=== PATIENT | male | born 1950 | race Caucasian/White ===

== ENCOUNTER 2022-08-14 07:15 | Emergency (ER) | payer OTHER, MEDICARE, SELFPAY ==
--- NOTE | ~2022-08-14 | CT_ITS ---
EXAMINATION: CT HEAD WITHOUT CONTRAST CLINICAL INFORMATION: Head injury, on blood thinners. COMPARISON: None TECHNIQUE: Contiguous axial imaging was performed from the skull base to vertex without intravenous administration of contrast. Coronal and sagittal reformatted images were obtained. This CT examination was performed using dose optimization techniques as appropriate, variously including the following: *Automated exposure control *Adjustment of mA and/or kV according to patient size (this includes techniques or standardized protocols for targeted exams where dose is matched to indication/reason for exam; i.e. extremities or head) *Use of iterative reconstruction technique DLP: 1454 mGy-cm FINDINGS: The cortical sulci are normal. The lateral ventricles are symmetrical. The third and fourth ventricles are in their normal midline position. The basilar and prepontine cisterns are unremarkable. There is no acute intra or extracerebral abnormality. There is no mass effect or midline shift. Moderate size right frontal subgaleal hematoma with subcutaneous changes. No underlying abnormality. Sections through the bony calvarium are unremarkable. The paranasal sinuses are clear. The bony orbits and orbital contents are unremarkable. CT/CT head/brain wo IV con IMPRESSION: 1. No acute intracranial pathology. 2. Moderate right subgaleal hematoma and subcutaneous changes without acute underlying abnormality.
--- NOTE | ~2022-08-14 | CT_ITS ---
EXAMINATION: CT CERVICAL SPINE WITHOUT CONTRAST CLINICAL INFORMATION: Neck pain status post fall. COMPARISON: None TECHNIQUE: Multiple axial images of the cervical spine were obtained without the administration of intravenous contrast. Coronal and sagittal reformatted images were obtained. This CT examination was performed using dose optimization techniques as appropriate, variously including the following: *Automated exposure control *Adjustment of mA and/or kV according to patient size (this includes techniques or standardized protocols for targeted exams where dose is matched to indication/reason for exam; i.e. extremities or head) *Use of iterative reconstruction technique DLP: 1454 mGy-cm with CT head from today. FINDINGS: There is normal cervical lordosis and spinal alignment. Moderate to severe degenerative disc disease is seen at C5-6 and C6-7 with disc space narrowing, sclerosis and adjacent endplates, subcortical cystic changes and marginal osteophyte formation. Mild neural foraminal narrowing on the left at both levels. Mild to moderate multilevel bilateral facet arthropathy. The odontoid process is intact with moderate articular degenerative changes. The spinous processes are intact. Mild nuchal ligament ossification is noted. The cervical soft tissues are unremarkable. No lymphadenopathy. The thyroid gland is unremarkable. The visualized lung apices are clear. CT/CT cervical spine wo IV con IMPRESSION: 1. C5-6 and C6-7 moderate to severe degenerative disc disease. No acute abnormality.
[2022-08-14 07:21] VITALS: BP 154/86; PULSE 100; RESP 16; TEMP 36.2; O2SAT 97; BMI 32.8
--- NOTE | 2022-08-14 07:35 | ED_ITS ---
HPI - Head Injury General Chief complaint: Head Injury Stated complaint: work inj 08/14/22 head inj Time Seen by Provider: 08/14/22 07:29 Source: patient Mode of arrival: ambulatory Limitations: no limitations History of Present Illness HPI Narrative: 72 yo male with hx of afib on eliquis, HTN here with c/o falling while at work. 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 Hit head on ground no LOC. No other injuries. Got up right away. Complaint: head injury and fall Onset (ago): hour(s) (645am today ) Mechanism of Injury: fall Place: work and outdoors Loss of Consciousness: no Location of injury: temporal Severity: moderate Quality: dull and aching Radiation: none Other Injuries: none Context: other anticoagulant use Associated symptoms: denies other symptoms Related Data Allergies Allergy/AdvReac Type Severity Reaction Status Date / Time Unable to Assess Allergy Verified 08/14/22 07:30 Review of Systems Review of Systems: Constitutional : No Fever, No Chills, No Fatigue ENT/Mouth : No sore throat, No Rhinorrhea Eyes: No Eye Pain, No Swelling, No Redness Cardiovascular : No Chest Pain, No SOB, No Dyspnea on Exertion Respiratory : No Cough, No Sputum Gastrointestinal : No Nausea, No Vomiting, No Diarrhea, No abdominal Pain Genitourinary : No Dysuria, No Urinary Frequency, No Hematuria, Musculoskeletal : No joint pain, No Myalgias, No Joint Swelling Skin : No Skin Lesions, No rash, pos contusion Neuro : No Weakness, No Numbness, No Dizziness, positive Headache Psych : No Anxiety/Panic, No Depression Heme/Lymph: No Bruising, No Bleeding,No Lymphadenopathy Endocrine : No Polyuria, No Polydipsia All other systems reviewed and are negative [facility] Past Medical History Attestation statement: The following information was validated with the patient. Medical History Afib HTN (hypertension) Social History Social History Alcohol intake: current Alcohol intake frequency: holidays/special occasions only Patient Tobacco Use Status: Never used Tobacco Use of substances other than those prescribed or required for medical reasons: No Advance Directives: No Advance Directives Information Provided: No Physical Exam Vital Signs: Vital Signs: Last Vital Signs Temp 97.1 F 08/14/22 07:21 Pulse 100 08/14/22 07:21 Resp 16 08/14/22 07:21 BP 154/86 H 08/14/22 07:21 Pulse Ox 97 08/14/22 07:21 O2 Del Method 08/14/22 07:21 BMI result Body Mass Index 32.8 Appearance: Alert. Oriented X3. No acute distress. Eyes: Pupils equal, round and reactive to light. ENT: Pharynx normal. Contusion to R samaritan area small abrasion Neck: Normal inspection. Neck supple. CVS: Normal heart rate and rhythm. Pulses normal. Chest: non-tender Respiratory: No respiratory distress. Breath sounds normal. Abdomen: Soft and non-tender. Back: no signs of trauma Skin: Skin warm and dry. Normal skin color. Extremities: No lower extremity edema. Full ROM Neuro: Oriented X 3. No motor deficit. No sensory deficit. Course Course Course Narrative: negative workup stable for DC MDM - Head Injury MDM Narrative Medical decision making narrative: 72 yo male with hx of afib on eliquis, HTN, here with c/o head injury s/p fall at work. At this time will need CT head/cspine given age and trauma as well as DOAC use. Discharge Plan Discharge Clinical Impression: Closed head injury Qualifiers: Encounter type: initial encounter Qualified Code(s): S09.90XA - Unspecified injury of head, initial encounter Contusion of scalp Qualifiers: Encounter type: initial encounter Qualified Code(s): S00.03XA - Contusion of scalp, initial encounter Patient Disposition: Home, Self-Care Instructions: Head Injury (ED), Contusion in Adults (ED) Additional Instructions: return to ED for any worsening symptoms or concerns FINDINGS: The cortical sulci are normal. The lateral ventricles are symmetrical. The third and fourth ventricles are in their normal midline position. The basilar and prepontine cisterns are unremarkable. There is no acute intra or extracerebral abnormality. There is no mass effect or midline shift. Moderate size right frontal subgaleal hematoma with subcutaneous changes. No underlying abnormality. Sections through the bony calvarium are unremarkable. The paranasal sinuses are clear. The bony orbits and orbital contents are unremarkable. CT/CT head/brain wo IV con IMPRESSION: 1. No acute intracranial pathology. 2. Moderate right subgaleal hematoma and subcutaneous changes without acute underlying abnormality. FINDINGS: There is normal cervical lordosis and spinal alignment. Moderate to severe degenerative disc disease is seen at C5-6 and C6-7 with disc space narrowing, sclerosis and adjacent endplates, subcortical cystic changes and marginal osteophyte formation. Mild neural foraminal narrowing on the left at both levels. Mild to moderate multilevel bilateral facet arthropathy. The odontoid process is intact with moderate articular degenerative changes. The spinous processes are intact. Mild nuchal ligament ossification is noted. The cervical soft tissues are unremarkable. No lymphadenopathy. The thyroid gland is unremarkable. The visualized lung apices are clear. CT/CT cervical spine wo IV con IMPRESSION: 1. C5-6 and C6-7 moderate to severe degenerative disc disease. No acute abnormality. Stand Alone Forms: Work/School Release
--- OUTSIDE RECORDS SUMMARY | 2022-08-14 07:35 | XMS_ITS | Continuity of Care Document ---
:1950 Author Organization [facility] Address [address] [place] [address]- Care Team Providers Name Role Phone Seth Toney MD Primary Care Physician [facility] 04[facility]21 - 05/25/21 [facility] [address] [place] [address]- Allergies, Adverse Reactions, Alerts Substance Reaction Severity Status NKA Active Immunizations Given and Recorded Vaccine Date Status Refusal Reason SARS-CoV-2 (COVID-19) mRNA-1273 vaccine 02/26/21 Recorded SARS-CoV-2 (COVID-19) mRNA-1273 vaccine 01/29/21 Recorded influenza virus vaccine, inactivated 09/01/19 Given influenza virus vaccine, inactivated 08/20/18 Given influenza virus vaccine, inactivated1 12/17/13 Given tetanus/diphtheria/pertussis, acel(Tdap)2 02/23/19 Given tetanus/diphtheria/pertussis, acel(Tdap) 12/17/13 Given pneumococcal 23-valent vaccine 08/06/17 Given pneumococcal 13-valent vaccine 07/31/16 Given Influenza Virus Vaccine (oldterm)3 01/26/16 Given Influenza Virus Vaccine (oldterm)4 10/29/07 Given Zoster Vaccine Live5 12/17/13 Given tetanus-diphtheria toxoids (Td) 08/28/04 Given 1Admin Note: [id number] Comment: ADMINISTERED S/P LACERATION TO RT LOWER LEG Admin Note: [id number] Note: rec'd at [id number] Note: DECLINED Medications Eliquis 5 mg oral tablet 1 tablet = 5 mg, By Mouth, 2 times a day, # 180 tablet, 3 Refills, Maintenance, 04/24/20 8:45:00 EDT, Tablet, [facility], 180, cm, 04/24/20 8:29:00 EDT, Height Start Date: 04/24/20 Stop Date: 04/19/21 Status: OrderedLotrel 5 mg-20 mg oral capsule 1 capsule, By Mouth, Daily, # 90 capsule, 3 Refills, Maintenance, 04/25/21 9:14:00 EDT, Capsule, [facility], Partial fill upon patient request if the prescription is for a schedule II opioid drug., 1 capsule By Mouth Daily, 180,... Start Date: 04/25/21 Status: OrderedToprol XL 25 mg oral tablet, extended release 25 mg, 1, tablet, By Mouth, Daily, # 90 tablet, Refills 3, Tot. Refills 3, Maintenance, 04/25/21 9:15:00 EDT, Route to Pharmacy Electronically, [facility], 180, cm, 04/25/21 9:00:00 EDT, Height Start Date: 04/25/21 Status: OrderedViagra 50 mg oral tablet 1 tablet = 50 mg, By Mouth, Daily, 1 hour before sexual activity, # 30 tablet, 5 Refills, Maintenance, 04/24/20 9:10:00 EDT, Tablet, [facility], 180, cm, 04/24/20 9:08:00 EDT, Height Start Date: 04/24/20 Status: Ordered Problem List Condition Effective Dates Status Health Status Informant Atrial fibrillation(Confirmed) Active Diverticulosis(Confirmed)1 Active ED (erectile dysfunction)(Confirmed) Active H/O colonoscopy(Confirmed)2, 3, 4 Active Hypertension(Confirmed) Active Internal hemorrhoids(Confirmed)5 Active Liver function tests Active abnormal(Confirmed) OA - Osteoarthritis of knee(Confirmed) Active Obesity (BMI 30-39.9)(Confirmed) Active Open wound of lower leg(Confirmed) Active Acquired polyneuropathy(Confirmed) Active Polyp of colon(Confirmed)6 Active Left shoulder pain(Confirmed) Active Warthin's tumor(Confirmed) Active 1colo 03010ablp 2019; repeat ; repeat 56757Npigpcvmqsq 2013 positive polyp, repeat 73927ymjc 72846gsap 2016 Social History Social History Type Response Smoking Status Former smoker; Other: quit s moking age 33; entered on: 07/29/16 Sex
--- OUTSIDE RECORDS SUMMARY | 2022-08-14 07:35 | XMS_ITS | Continuity of Care Document ---
:1950 Author Organization [facility] Address [address] [place] [address]- Care Team Providers Name Role Phone Seth Toney MD Primary Care Physician [facility] Date[facility]): 02/27/22 - 03/29/22 [facility] [address] [place] [address]- Allergies, Adverse Reactions, Alerts No Known Allergies Immunizations Given and Recorded Vaccine Date Status Refusal Reason influenza virus vaccine, inactivated1 08/20/21 Given influenza virus vaccine, inactivated 09/01/19 Given influenza virus vaccine, inactivated 08/20/18 Given influenza virus vaccine, inactivated2 12/17/13 Given SARS-CoV-2 (COVID-19) mRNA-1273 vaccine 02/26/21 Recorded SARS-CoV-2 (COVID-19) mRNA-1273 vaccine 01/29/21 Recorded tetanus/diphtheria/pertussis, acel(Tdap)3 02/23/19 Given tetanus/diphtheria/pertussis, acel(Tdap) 12/17/13 Given pneumococcal 23-valent vaccine 08/06/17 Given pneumococcal 13-valent vaccine 07/31/16 Given Influenza Virus Vaccine (oldterm)4 01/26/16 Given Influenza Virus Vaccine (oldterm)5 10/29/07 Given Zoster Vaccine Live6 12/17/13 Given tetanus-diphtheria toxoids (Td) 08/28/04 Given 1Result Comment: NDC# [address] [phone] Note: [id number] Comment: ADMINISTERED S/P LACERATION TO RT LOWER LEG Admin Note: [id number] Note: rec'd at [id number] Note: DECLINED Medications Eliquis 5 mg oral tablet 1 tablet, By Mouth, 2 times a day, # 180 Unknown, 3 Refills, [facility], 70.8, cm, 02/28/22 7:13:00 EDT, Height Start Date: 03/25/22 Status: OrderedLotrel 5 mg-20 mg oral capsule 1 capsule, By Mouth, Daily, # 90 Unknown, 3 Refills, [facility], 90, TAKE 1 CAPSULE DAILY,70.8, cm, 02/28/22 7:13:00 EDT, Height Start Date: 03/25/22 Status: OrderedToprol XL 25 mg oral tablet, extended release 1, tablet, By Mouth, Daily, # 90 Unknown, Refills 3, Route to Pharmacy Electronically, [facility], 70.8, cm, 02/28/22 7:13:00 EDT, Height Start Date: 03/25/22 Status: OrderedViagra 50 mg oral tablet 1 tablet = 50 mg, By Mouth, Daily, 1 hour before sexual activity, # 30 tablet, 5 Refills, Maintenance, 04/24/20 9:10:00 EDT, Tablet, [facility] # [facility], 180, cm, 04/24/20 9:08:00 [...] shoulder pain(Confirmed) Active Warthin's tumor(Confirmed) Active 1colo 73112wtnm 2019; repeat ; repeat 90124Iucpxmeauuo 2013 positive polyp, repeat 96731jdoz 81832auuo 2016 Social History Social History Type Response Smoking Status Former smoker; Other: quit s moking age 33; entered on: 07/29/16 Sex
--- OUTSIDE RECORDS SUMMARY | 2022-08-14 07:35 | XMS_ITS | Continuity of Care Document ---
:1950 Author Organization [facility] Address [address] [place] [address]- Care Team Providers Name Role Phone Seth Toney MD Primary Care Physician [facility]s): 08/20/21 - 09/19/21 [facility] [address] [place] [address]- Attending Physician: Admtr, Ar8 Admitting Physician: Admtr, Ar8 Referring Physician: Admtr, Ar8 Allergies, Adverse Reactions, Alerts Substance Reaction Severity [...] 08/28/04 Given 1Result Comment: NDC# [address] [phone] Note: [id number] Comment: ADMINISTERED S/P LACERATION TO RT LOWER LEG Admin Note: [id number] Note: rec'd at [id number] Note: DECLINED Medications Eliquis 5 mg oral tablet 1 tablet, By Mouth, 2 times a day, # 180 Unknown, 1 Refills, 08/20/21 9:13:00 EDT, [facility], 180, cm, 08/20/21 8:52:00 EDT, Height Start Date: 08/20/21 Status: OrderedLotrel 5 mg-20 mg oral capsule 1 capsule, By Mouth, Daily, # 90 capsule, 1 Refills, Maintenance, 08/20/21 9:13:00 EDT, Capsule, [facility], Partial fill upon patient request if the prescription is for a schedule II opioid drug., 1 capsule By Mouth Daily, 180, cm, ... Start Date: 08/20/21 Status: OrderedToprol XL 25 mg oral tablet, extended release 25 mg, 1, tablet, By Mouth, Daily, # 90 tablet, Refills 1, Tot. Refills 1, Maintenance, 08/20/21 9:13:00 EDT, Route to Pharmacy Electronically, [facility], 180, cm, 08/20/21 8:52:00 EDT, Height Start Date: 08/20/21 Status: OrderedViagra 50 mg oral tablet 1 tablet = 50 mg, By Mouth, Daily, 1 hour before sexual activity, # 30 tablet, 5 Refills, Maintenance, 04/24/20 9:10:00 EDT, Tablet, [facility] # [facility], 180, cm, 04/24/20 9:08:00 [...] shoulder pain(Confirmed) Active Warthin's tumor(Confirmed) Active 1colo 30751fpzk 2019; repeat ; repeat 07745Steehxgjkwv 2013 positive polyp, repeat 53534yapz 31413poyj 2016 Vital Signs Most recent to oldest [Reference Range]: 1 Height 180.00 cm (12/15/08 2:34 PM) Blood Pressure [90-138/55-84 mm Hg] 142/86 mm Hg *H* (12/15/08 2:34 PM) Blood pressure sites Arm, left (12/15/08 2:34 PM) Social History Social History Type Response Smoking Status Former smoker; Other: quit s moking age 33; entered on: 07/29/16 Sex
--- OUTSIDE RECORDS SUMMARY | 2022-08-14 07:35 | XMS_ITS | Continuity of Care Document ---
:1950 Author Organization [facility] Address [address] [place] [address]- Care Team Providers Name Role Phone Seth Toney MD Primary Care Physician [facility]s): 05/14/22 - 06/13/22 [facility] [address] [place] [address]- Allergies, Adverse Reactions, Alerts No Known Allergies [...] 08/28/04 Given 1Result Comment: NDC# [place] [address] [phone] Note: [id number] Comment: ADMINISTERED S/P LACERATION TO RT LOWER LEG Admin Note: [id number] Note: rec'd at [id number] Note: DECLINED Medications Eliquis 5 mg oral [...] 5 Refills, Maintenance, 04/24/20 9:10:00 EDT, Tablet, [facility], 180, cm, 04/24/20 9:08:00 [...] shoulder pain(Confirmed) Active Warthin's tumor(Confirmed) Active 1colo 23657xphg 2019; repeat ; repeat 47088Lnwtzzhojzn 2013 positive polyp, repeat 20220pfuq 33140dbbz 2016 Social History Social History Type Response Smoking Status Former smoker; Other: quit s moking age 33; entered on: 07/29/16 Sex
--- OUTSIDE RECORDS SUMMARY | 2022-08-14 07:35 | XMS_ITS | Continuity of Care Document ---
:1950 Author Organization [facility] Address [address] [place] [address]- Care Team Providers Name Role Phone Seth Toney MD Primary Care Physician [facility] Date[facility]s): 02/08/22 - 03/10/22 [facility] [address] [place] [address]- Allergies, Adverse Reactions, Alerts No Known Allergies [...] 08/28/04 Given 1Result Comment: NDC# [address] [phone] Note: [id number] Comment: ADMINISTERED S/P LACERATION TO RT LOWER LEG Admin Note: [id number] Note: rec'd at [id number] Note: DECLINED Medications Eliquis 5 mg oral [...] 5 Refills, Maintenance, 04/24/20 9:10:00 EDT, Tablet, [facility] # [facility], 180, cm, 04/24/20 9:08:00 [...] shoulder pain(Confirmed) Active Warthin's tumor(Confirmed) Active 1colo 69183gqgw 2019; repeat ; repeat 93646Extyhtghjoi 2013 positive polyp, repeat 45038vvgn 09239cjuh 2016 Social History Social History Type Response Smoking Status Former smoker; Other: quit s moking age 33; entered on: 07/29/16 Sex
--- OUTSIDE RECORDS SUMMARY | 2022-08-14 07:35 | XMS_ITS | Continuity of Care Document ---
:1950 Author Organization [facility] Address [address] [place] [address]- Care Team Providers Name Role Phone Dawna HARDEN, Seth Holley Primary Care Physician [place] [facility] [place] 07/29/[address] [address]- Attending Physician: Mathew Doran Admitting Physician: Mathew Doran Referring Physician: AdmtrMathew Allergies, Adverse Reactions, Alerts Substance Reaction Severity [...] tetanus-diphtheria toxoids (Td) 08/28/04 Given 1Admin Note: [id number] Comment: ADMINISTERED S/P LACERATION TO RT LOWER LEG Admin Note: [id number] Note: rec'd at [id number] Note: DECLINED Medications Eliquis 5 mg oral tablet 1 tablet, By Mouth, 2 times a day, # 180 Unknown, 0 Refills, [facility], 180, cm, 219:00:00 EDT, Height Start Date: 07/26/21 Status: OrderedLotrel 5 mg-20 mg oral capsule [...] 5 Refills, Maintenance, 04/24/20 9:10:00 EDT, Tablet, [facility] # [facility], 180, cm, 04/24/20 9:08:00 [...] shoulder pain(Confirmed) Active Warthin's tumor(Confirmed) Active 1colo 06451vzft 2019; repeat ; repeat 10991Njgmzuudsjb 2013 positive polyp, repeat 59149himp 89539bagg 2016 Social History Social History Type Response Smoking Status Former smoker; Other: quit s moking age 33; entered on: 07/29/16 Sex
--- OUTSIDE RECORDS SUMMARY | 2022-08-14 07:36 | XMS_ITS | Continuity of Care Document ---
:1950 Author Organization [facility] Address [address] [place] [address]- Care Team Providers Name Role Phone Seth Toney MD Primary Care Physician [place] [facility] [place] 06/28/20 - 07/28/20 [facility] [address] [place] [address]- [facility] Attending Physician: Mathew Doran Admitting Physician: AdmMathew morocho Referring Physician: AdmtrMathew Allergies, Adverse Reactions, Alerts Substance Reaction Severity Status NKA Active Immunizations Given and Recorded Vaccine Date Status Refusal Reason influenza virus vaccine, inactivated 09/01/19 Given influenza virus vaccine, inactivated 08/20/18 Given influenza virus vaccine, inactivated1 12/17/13 Given tetanus/diphtheria/pertussis, acel(Tdap)2 02/23/19 Given tetanus/diphtheria/pertussis, acel(Tdap) 12/17/13 Given pneumococcal 23-valent vaccine 08/06/17 Given pneumococcal 13-valent vaccine 07/31/16 Given Influenza Virus Vaccine (oldterm)3 01/26/16 Given Influenza Virus Vaccine (oldterm)4 10/29/07 Given Zoster Vaccine Live5 12/17/13 Given tetanus-diphtheria toxoids (Td) 08/28/04 Given 1Admin Note: [id number] Comment: ADMINISTERED S/P LACERATION TO RT LOWER LEG Admin Note: [id number] Note: rec'd at [id number] Note: DECLINED Medications amlodipine-benazepril 5 mg-40 mg oral capsule 1 capsule, By Mouth, Daily, for 90 days, # 90 capsule, 3 Refills, Hard Stop 04/19/21 8:44:00 EDT, 04/24/20 8:44:00 EDT, Capsule, [facility] Pres[facility] Delivery, 1 capsule By Mouth Daily,x90 days, 180, cm, 04/24/20 8:29:00 EDT, Height Start Date: 04/24/20 Stop Date: 04/19/21 Status: OrderedEliquis 5 mg oral tablet 1 tablet = 5 mg, By Mouth, 2 times a day, # 180 tablet, 3 Refills, Maintenance, 04/24/20 8:45:00 EDT, Tablet, [facility] Prescription Delivery, 180, cm, 04/24/20 8:29:00 EDT, Height Start Date: 04/24/20 Stop Date: 04/19/21 Status: OrderedToprol XL 25 mg oral tablet, extended release 25 mg, 1, tablet, By Mouth, Daily, # 90 tablet, Refills 3, Tot. Refills 3, Maintenance, 04/24/20 8:45:00 EDT, Route to Pharmacy Electronically, [facility] Pres[facility], 180, cm, 04/24/20 8:29:00 EDT, Height Start Date: 04/24/20 Status: OrderedViagra 50 mg oral tablet 1 tablet = 50 mg, By Mouth, Daily, 1 hour before sexual activity, # 30 tablet, 5 Refills, Maintenance, 04/24/20 9:10:00 EDT, Tablet, [facility], 180, cm, 04/24/20 9:08:00 [...] Acquired polyneuropathy(Confirmed) Active Polyp of colon(Confirmed)6 Active Warthin's tumor(Confirmed) Active 1colo 18726ptbp 2019; repeat ; repeat 16594Rupwguasbik 2013 positive polyp, repeat 13490sjdx 87890fetj 2016 Social History Social History Type Response Smoking Status Former smoker; Other: quit s moking age 33; entered on: 07/29/16 Sex
--- OUTSIDE RECORDS SUMMARY | 2022-08-14 07:36 | XMS_ITS | Continuity of Care Document ---
:1950 Author Organization [facility] Address [address] [place] [address]- Care Team Providers Name Role Phone Seth Toney MD Primary Care Physician [place] [facility] [place] [facility] [address] [place] [address]- Attending Physician: Seth Toney MD Allergies, Adverse Reactions, Alerts Substance Reaction Severity [...] tetanus-diphtheria toxoids (Td) 08/28/04 Given 1Result Comment: [facility]# [address] [phone] Note: [id number] Comment: ADMINISTERED S/P LACERATION TO RT LOWER LEG Admin Note: [id number] Note: rec'd at [id number] Note: DECLINED Medications Eliquis 5 mg oral [...] 5 Refills, Maintenance, 04/24/20 9:10:00 EDT, Tablet, [facility], 180, cm, 04/24/20 9:08:00 [...] shoulder pain(Confirmed) Active Warthin's tumor(Confirmed) Active 1colo 54934obhq 2019; repeat ; repeat 79518Xlnaqxypcgn 2013 positive polyp, repeat 60140txqq 81424jhri 2016 Social History Social History Type Response Smoking Status Former smoker; Other: quit s moking age 33; entered on: 07/29/16 Sex
--- OUTSIDE RECORDS SUMMARY | 2022-08-14 07:36 | XMS_ITS | Continuity of Care Document ---
:1950 Author Organization [facility] Address [address] [place] [address]- Care Team Providers Name Role Phone Seth Toney MD Primary Care Physician [facility]counter [facility] Date(s): 07/04/22 - 07/11/22 [facility] [address] [place] [address]- Attending Physician: Seth Toney MD Allergies, Adverse Reactions, Alerts No Known Allergies Immunizations Given and Recorded Vaccine Date Status Refusal Reason tetanus-diphtheria toxoids (Td)1 07/04/22 Given tetanus-diphtheria toxoids (Td) 08/28/04 Given SARS-CoV-2 (COVID-19) mRNA-1273 vaccine 09/04/21 Recorded SARS-CoV-2 (COVID-19) mRNA-1273 vaccine 02/26/21 Recorded SARS-CoV-2 (COVID-19) mRNA-1273 vaccine 01/29/21 Recorded influenza virus vaccine, inactivated2 08/20/21 Given influenza virus vaccine, inactivated 09/01/19 Given influenza virus vaccine, inactivated 08/20/18 Given influenza virus vaccine, inactivated3 12/17/13 Given tetanus/diphtheria/pertussis, acel(Tdap)4 02/23/19 Given tetanus/diphtheria/pertussis, acel(Tdap) 12/17/13 Given pneumococcal 23-valent vaccine 08/06/17 Given pneumococcal 13-valent vaccine 07/31/16 Given Influenza Virus Vaccine (oldterm)5 01/26/16 Given Influenza Virus Vaccine (oldterm)6 10/29/07 Given Zoster Vaccine Live7 12/17/13 Given 1Result Comment: not [id number] Comment: NDC# [address] [phone] Note: [id number] Comment: ADMINISTERED S/P LACERATION TO RT LOWER LEG Admin Note: [id number] Note: rec'd at [id number] Note: DECLINED Medications Eliquis 5 mg oral tablet 1 tablet, By Mouth, 2 times a day, # 180 Unknown, 3 Refills, [employer], 70.8, cm, 02/28/22 7:13:00 EDT, Height Start Date: 03/25/22 Status: OrderedFlomax 0.4 mg oral capsule 0.4 mg, 1, capsule, By Mouth, Daily, # 90 capsule, Refills 3, Tot. Refills 3, Maintenance, 07/04/22 7:37:00 EDT, Route to Pharmacy Electronically, [id number], Partial fill upon patient request if the prescription is for a schedule II opioid... Start Date: 07/04/22 Status: OrderedLotrel 5 mg-20 mg oral capsule [...] activity, # 30 tablet, 5 Refills, Maintenance, 07/04/22 7:37:00 EDT, Tablet, [facility], 70.8, cm, 02/28/22 7:13:00 EDT, Height Start Date: 07/04/22 Status: Ordered Problem List Condition Effective Dates Status Health Status Informant Atrial fibrillation(Confirmed) Active Glucose intolerance(Confirmed) Active Diverticulosis(Confirmed)1 Active ED (erectile dysfunction)(Confirmed) Active H/O colonoscopy(Confirmed)2, 3, 4 Active Hypertension(Confirmed) Active Internal hemorrhoids(Confirmed)5 Active Abnormal LFTs (liver function Active tests)(Confirmed) BPH associated with Active nocturia(Confirmed) OA - Osteoarthritis of knee(Confirmed) Active Obesity (BMI 30-39.9)(Confirmed) Active Open wound of lower leg(Confirmed) Active Acquired polyneuropathy(Confirmed) Active Polyp of colon(Confirmed)6 Active Severe obesity(Confirmed) Active Left shoulder pain(Confirmed) Active Subclinical hypothyroidism(Confirmed) Active Warthin's tumor(Confirmed) Active 1colo 34176vgpp 2019; repeat ; repeat 45147Olpolsgqekz 2013 positive polyp, repeat 64397jixe 60898ksuj 2016 Vital Signs Most recent to oldest [Reference Range]: 1 Weight 110.5 kg (07/04/22 6:52 AM) Oxygen Saturation [94-100 %] 97 % (07/04/22 6:52 AM) Pulse Rate [55-90 bpm] 115 bpm *H* (07/04/22 6:52 AM) Blood Pressure [90-138/55-84 mm Hg] 122/86 mm Hg (07/04/22 6:52 AM) Mode of Delivery (Oxygen) Room air (07/04/22 6:52 AM) Blood pressure sites Arm, left (07/04/22 6:52 AM) Weight Obtained Via Standing scale (07/04/22 6:52 AM) Social History Social History Type Response Smoking Status Former smoker; Other: quit s moking age 33; entered on: 07/29/16 Sex Care Team PersonnelName: Seth Toney MD Address: [address] [place] [address] [place], [place] [address]
--- OUTSIDE RECORDS SUMMARY | 2022-08-14 07:36 | XMS_ITS | Continuity of Care Document ---
:1950 Author Organization [facility] Address [address] [place] [address]- Care Team Providers Name Role Phone Seth Toney MD Primary Care Physician [facility]counter [facility] Date(s): 06/28/20 - 07/28/20 [facility] [address] [place] [id number] Allergies, Adverse Reactions, Alerts Substance Reaction Severity [...] tetanus-diphtheria toxoids (Td) 08/28/04 Given 1Admin Note: [id number] Comment: ADMINISTERED S/P LACERATION TO RT LOWER LEG Admin Note: [id number] Note: rec'd at [id number] Note: DECLINED Medications amlodipine-benazepril 5 mg-40 mg [...] 5 Refills, Maintenance, 04/24/20 9:10:00 EDT, Tablet, [facility], 180, cm, 04/24/20 9:08:00 [...] of colon(Confirmed)6 Active Warthin's tumor(Confirmed) Active 1colo 43365rfgi 2019; repeat ; repeat 03031Mazmummcbgx 2013 positive polyp, repeat 57673djct 85790fthy 2016 Social History Social History Type Response Smoking Status Former smoker; Other: quit s moking age 33; entered on: 07/29/16 Sex
--- OUTSIDE RECORDS SUMMARY | 2022-08-14 07:36 | XMS_ITS | Continuity of Care Document ---
:1950 Author Organization [facility] Address [address] [place] [address]- Care Team Providers Name Role Phone Seth Toney MD Primary Care Physician Encounter [facility] Date(s): 06/23/21 - 07/29/[address] [address]- Attending Physician: Seth Toney MD Admitting Physician: Seth Toney MD Referring Physician: Seth Toney MD Allergies, Adverse Reactions, [...] tetanus-diphtheria toxoids (Td) 08/28/04 Given 1Admin Note: [id number] Comment: ADMINISTERED S/P LACERATION TO RT LOWER LEG Admin Note: [id number] Note: rec'd at [id number] Note: DECLINED Medications Eliquis 5 mg oral [...] 5 Refills, Maintenance, 04/24/20 9:10:00 EDT, Tablet, [facility], 180, cm, 04/24/20 9:08:00 [...] shoulder pain(Confirmed) Active Warthin's tumor(Confirmed) Active 1colo 05150vwqh 2019; repeat ; repeat 43367Noczvuhudyn 2013 positive polyp, repeat 73954gerd 95930lrcm 2016 Social History Social History Type Response Smoking Status Former smoker; Other: quit s moking age 33; entered on: 07/29/16 Sex
--- OUTSIDE RECORDS SUMMARY | 2022-08-14 07:36 | XMS_ITS | Continuity of Care Document ---
:1950 Author Organization [facility] Address [address] [place] [address]- Care Team Providers Name Role Phone Seth Toney MD Primary Care Physician [facility]counter [facility] Date(s): 04/25/21 - 05/02/21 [facility] [address] [place] [address]- Encounter Diagnosis Acquired polyneuropathy (Discharge Diagnosis) - 04/25/21 Atrial fibrillation (Discharge Diagnosis) - 04/25/21 Hypertension (Discharge Diagnosis) - 04/25/21 Obesity (BMI 30-39.9) (Discharge Diagnosis) - 04/25/21 Attending Physician: Seth Toney MD Allergies, Adverse [...] tetanus-diphtheria toxoids (Td) 08/28/04 Given 1Admin Note: [id number] Comment: ADMINISTERED S/P LACERATION TO RT LOWER LEG 4/14/193Admin Note: [id number] Note: rec'd at [id number] Note: DECLINED Medications Eliquis 5 mg oral [...] 5 Refills, Maintenance, 04/24/20 9:10:00 EDT, Tablet, [facility], 180, cm, 04/24/20 9:08:00 [...] shoulder pain(Confirmed) Active Warthin's tumor(Confirmed) Active 1colo 56895xqzj 2019; repeat [id number]; repeat 65787Acqpurshgnj 2014 positive polyp, repeat 57943ikuk 47070qiwc 2016 Diagnosis Diagnosis Type Effective Dates Health Clinical Infor mant Status Service Acquired Discharge 04/25/21 polyneuropathy Diagnosis Atrial fibrillation Discharge 04/25/21 Diagnosis Hypertension Discharge 04/25/21 Diagnosis Obesity (BMI Discharge 04/25/21 30-39.9) Diagnosis Vital Signs Most recent to oldest [Reference Range]: 1 Height 180.00 cm (04/25/21 9:00 AM) Weight 109.3 kg (04/25/21 9:00 AM) Oxygen Saturation [94-100 %] 98 % (04/25/21 9:00 AM) Pulse Rate [55-90 bpm] 83 bpm (04/25/21 9:00 AM) Body Mass Index [18.5-24.99] 33.73 *>HHI* (04/25/21 9:00 AM) Blood Pressure [90-138/55-84 mm Hg] 122/72 mm Hg (04/25/21 9:00 AM) Mode of Delivery (Oxygen) Room air (04/25/21 9:00 AM) Blood pressure sites Arm, left (04/25/21 9:00 AM) Weight Obtained Via Standing scale (04/25/21 9:00 AM) Social History Social History Type Response Smoking Status Former smoker; Other: quit s moking age 33; entered on: 07/29/16 Sex
--- OUTSIDE RECORDS SUMMARY | 2022-08-14 07:36 | XMS_ITS | Continuity of Care Document ---
:1950 Author Organization [facility] Address [address] [place] [address]- Care Team Providers Name Role Phone Seth Toney MD Primary Care Physician Encounter [facility] Date(s): 03/04/22 - 04/03/22 [facility] [address] [place] [address]- Allergies, Adverse Reactions, Alerts No Known Allergies [...] 08/28/04 Given 1Result Comment: NDC# [place] [address] [phone] Note: [id number] Comment: ADMINISTERED S/P LACERATION TO RT LOWER LEG Admin Note: [id number] Note: rec'd at [id number] Note: DECLINED Medications Eliquis 5 mg oral [...] 5 Refills, Maintenance, 04/24/20 9:10:00 EDT, Tablet, [facility], 180, cm, 04/24/20 9:08:00 [...] shoulder pain(Confirmed) Active Warthin's tumor(Confirmed) Active 1colo 76674cnmu 2019; repeat ; repeat 97108Webyxpxmlyl 2013 positive polyp, repeat 86750qnmu 96499yzuf 2016 Social History Social History Type Response Smoking Status Former smoker; Other: quit s moking age 33; entered on: 07/29/16 Sex
--- OUTSIDE RECORDS SUMMARY | 2022-08-14 07:36 | XMS_ITS | Continuity of Care Document ---
:1950 Author Organization [facility] Address [address] [place] [address]- Care Team Providers Name Role Phone Seth Toney MD Primary Care Physician Encounter [facility] Date(s): 08/20/21 - 08/27/21 [facility] [address] [place] [address]- Attending Physician: Dana Locke NP Referring Physician: Seth Toney MD Allergies, Adverse [...] 08/28/04 Given 1Result Comment: NDC# [place] [address] [phone] Note: [id number] Comment: ADMINISTERED S/P LACERATION TO RT LOWER LEG Admin Note: [id number] Note: rec'd at [id number] Note: DECLINED Medications Eliquis 5 mg oral [...] 5 Refills, Maintenance, 04/24/20 9:10:00 EDT, Tablet, [facility], 180, cm, 04/24/20 9:08:00 [...] shoulder pain(Confirmed) Active Warthin's tumor(Confirmed) Active 1colo 01872hevo 2019; repeat ; repeat 79804Vghnaigzhuv 2014 positive polyp, repeat 07015rooi 87317jhwq 2016 Vital Signs Most recent to oldest [Reference Range]: 1 Height 180.00 cm (08/20/21 8:52 AM) Weight 110.7 kg (08/20/21 8:52 AM) Oxygen Saturation [94-100 %] 98 % (08/20/21 8:52 AM) Pulse Rate [55-90 bpm] 56 bpm (08/20/21 8:52 AM) Body Mass Index [18.5-24.99] 34.17 *>HHI* (08/20/21 8:52 AM) Blood Pressure [90-138/55-84 mm Hg] 136/82 mm Hg (08/20/21 8:52 AM) Temperature [96.8-100.4 DegF] 97.5 DegF (08/20/21 8:52 AM) Mode of Delivery (Oxygen) Room air (08/20/21 8:52 AM) Blood pressure sites Arm, left (08/20/21 8:52 AM) Temperature Route Oral (08/20/21 8:52 AM) Weight Obtained Via Standing scale (08/20/21 8:52 AM) Social History Social History Type Response Smoking Status Former smoker; Other: quit s moking age 33; entered on: 07/29/16 Sex
--- OUTSIDE RECORDS SUMMARY | 2022-08-14 07:36 | XMS_ITS | Continuity of Care Document ---
:1950 Author Organization [facility] Address [address] [place] [address]- Care Team Providers Name Role Phone Seth Toney MD Primary Care Physician [facility] [place](s): 04/24/20 - 05/01/20 [facility] [address] [place] [address]- [facility] Encounter Diagnosis Atrial fibrillation (Discharge Diagnosis) - 04/24/20 Hypertension (Discharge Diagnosis) - 04/24/20 Obesity (BMI 30-39.9) (Discharge Diagnosis) - 04/24/20 Acquired polyneuropathy (Discharge Diagnosis) - 04/24/20 Polyp of colon (Discharge Diagnosis) - 04/24/20 Attending Physician: Seth Toney MD Allergies, Adverse [...] tetanus-diphtheria toxoids (Td) 08/28/04 Given 1Admin Note: [id number] Comment: ADMINISTERED S/P LACERATION TO RT LOWER LEG Admin Note: [id number] Note: rec'd at [id number] Note: DECLINED Medications amlodipine-benazepril 5 mg-40 mg [...] 5 Refills, Maintenance, 04/24/20 9:10:00 EDT, Tablet, [facility], 180, cm, 04/24/20 9:08:00 EDT, Height Start Date: 04/24/20 Status: Ordered Problem List Condition Effective Dates Status Health Status Informant Atrial fibrillation(Confirmed) Active Diverticulosis(Confirmed)1 Active ED (erectile dysfunction)(Confirmed) Active H/O colonoscopy(Confirmed)2, 3 Active Hypertension(Confirmed) Active Internal hemorrhoids(Confirmed)4 Active Liver function tests Active abnormal(Confirmed) OA - Osteoarthritis of knee(Confirmed) Active Obesity (BMI 30-39.9)(Confirmed) Active Open wound of lower leg(Confirmed) Active Acquired polyneuropathy(Confirmed) Active Polyp of colon(Confirmed)5 Active Warthin's tumor(Confirmed) Active 1colo [id number]; repeat 02594Hvbmbeuzadt 2013 positive polyp, repeat 43339zgjz 86990ngwd 2016 Diagnosis Diagnosis Type Effective Dates Health Clinical Infor mant Status Service Atrial fibrillation Discharge 04/24/20 Diagnosis Hypertension Discharge 04/24/20 Diagnosis Obesity (BMI Discharge 04/24/20 30-39.9) Diagnosis Acquired Discharge 04/24/20 polyneuropathy Diagnosis Polyp of colon Discharge 04/24/20 Diagnosis Vital Signs Most recent to oldest [Reference Range]: 1 2 Height 180.00 cm 180.00 cm (04/24/20 9:08 AM) (04/24/20 8:29 AM) Weight 111.1 kg (04/24/20 8:29 AM) Oxygen Saturation [94-100 %] 98 % (04/24/20 8:29 AM) Pulse Rate [55-90 bpm] 85 bpm (04/24/20 8:29 AM) Body Mass Index [18.5-24.99] 34.29 *>HHI* (04/24/20 8:29 AM) Blood Pressure [90-138/55-84 mm Hg] 138/85 mm Hg 146/ 92 mm Hg (04/24/20 9:08 AM) *H* (04/24/20 8:29 AM) Respiratory Rate [16-30 br/min] 12 br/min *L* (04/24/20 8:29 AM) Blood pressure sites Arm, left (04/24/20 8:29 AM) Weight Obtained Via Standing scale (04/24/20 8:29 AM) Social History Social History Type Response Smoking Status Former smoker; Other: quit s moking age 33; entered on: 07/29/16 Sex
[2022-08-14 09:16] VITALS: BP 137/84; PULSE 82; RESP 18; TEMP 37; O2SAT 96
== END 2022-08-14 09:37 | disposition home or self-care (01) ==
PROVIDERS: Emergency Provider Emergency Medicine; PCP Internal Medicine
DX: S00.03XA Contusion of scalp, initial encounter (principal); R51.9 Headache, unspecified; M54.2 Cervicalgia; W01.0XXA Fall on same level from slipping, tripping and stumbling without subsequent striking against object, initial encounter; Y93.9 Activity, unspecified; Y92.9 Unspecified place or not applicable; Y99.0 Civilian activity done for income or pay
CPT/HCPCS: 70450; 72125; 99284